=== PATIENT | male | born 1975 | race Caucasian/White ===

== ENCOUNTER 2021-11-01 20:09 | Emergency (ER) | payer OTHER ==
[2021-11-01] MEDS ORDERED: IBUPROFEN800 MG PO (20:32)
[2021-11-01] MEDS ORDERED: PENVEE K 500 M500 MG PO (20:32)
== END 2021-11-01 20:40 | disposition home or self-care (01) ==
LOC: ER1 20:09
DX: K05.10 Chronic gingivitis, plaque induced (principal); K08.89 Other specified disorders of teeth and supporting structures
CPT/HCPCS: 99282